=== PATIENT | male | born 1980 | race Caucasian/White ===

== ENCOUNTER 2018-06-16 17:03 | Emergency (ER) | payer BC, OTHER, MEDICAID | END 2018-06-16 19:34 | disposition home or self-care (01) | LOC: M ED 17:03 | DX: M62.830 Muscle spasm of back (principal); M54.30 Sciatica, unspecified side; I10 Essential (primary) hypertension | CPT/HCPCS: 72170 ==

== ENCOUNTER 2018-11-07 18:59 | Emergency (ER) | payer BC ==
[~2018-11-07] VITALS: Ht 185.4 cm; Wt 100.0 kg
[~2018-11-07 18:59] MED LIST: /AUGM875TA; ACET65TA; ASPI325T; CIPR-250 PO; CYCL10TA PO; HYDR-2541 PO; IBUP-1022 PO; LISI-538 PO; MEDR4PAK PO; NORC1TAB7 PO; No Historical Meds; PERC5TAB8; VICO5TAB17 PO
[2018-11-07 19:00] VITALS: BP 146/102
== END 2018-11-07 19:45 | disposition left against medical advice (07) ==
LOC: M ED 18:59
DX: Z53.29 Procedure and treatment not carried out because of patient's decision for other reasons (principal)